=== PATIENT | female | born 1945 | race Caucasian/White ===

== ENCOUNTER 2023-06-25 22:57 | Emergency (ER) | payer MEDICARE, OTHER ==
[~2023-06-25] VITALS: Ht 167.6 cm; Wt 68.0 kg
[2023-06-26 01:31] VITALS: BP 128/82; O2SAT 99
== END 2023-06-26 01:32 | disposition home or self-care (01) ==
LOC: ER 23:04
DX: M79.10 Myalgia, unspecified site (principal); K21.9 Gastro-esophageal reflux disease without esophagitis; Z60.2 Problems related to living alone
CPT/HCPCS: A4606; A4663